=== PATIENT | female | born 1995 | race Caucasian/White ===

== ENCOUNTER 2024-02-15 14:17 | Inpatient (IN) | payer MEDICAID ==
[~2024-02-15] VITALS: Ht 165.1 cm; Wt 123.6 kg
[2024-02-15 15:05] LABS: BASO # 0.03 K/mm3 (0.02-0.10); EOS # 0.08 K/mm3 (0.04-0.40); EOS % 0.5 % (1.0-5.0); HEMATOCRIT 32.3 % (37.0-47.0); HEMOGLOBIN 10.3 g/dL (12.5-16.0); LYMPH# 0.86 K/mm3 (1.50-4.00); MEAN CELL VOLUME 77 fl (78-100); MEAN CORPUSCULAR HEMOGLOBIN 25 pg (27-31); MEAN CORPUSCULAR HGB CONC 32 g/dL (33-37); MEAN PLATELET VOLUME 9.7 fl (7.4-10.4); MONO # 0.89 K/mm3 (0.20-0.80); NEU # 14.83 K/mm3 (1.40-6.50); PLATELET COUNT 164 K/mm3 (130-400); RED BLOOD COUNT 4.18 M/mm3 (4.10-5.30); RED CELL DISTRIBUTION WIDTH 14.4 % (11.5-14.5); WHITE BLOOD COUNT 16.7 K/mm3 (4.8-10.8)
[2024-02-15 15:12] LABS: ALBUMIN 3.6 g/dL (3.5-5.0)
[2024-02-15 15:15] LABS: TOTAL PROTEIN 7.5 g/dL (6.4-8.3)
[2024-02-15] MEDS ORDERED: NS 1,000 ML IV SCH (15:15)
[2024-02-15 15:17] LABS: TOTAL BILIRUBIN 0.8 mg/dL (0.2-1.2)
[2024-02-15] MEDS ORDERED: cefTRIAXone 1 G in Water For Injection,Sterile 10 ML IV ONE (16:15)
[2024-02-15] MEDS ORDERED: Vancomycin 2 G in NS 500 ML IV ONE (16:30)
[2024-02-15] MEDS ORDERED: DAPAGLIFLOZIN10 MG PO (16:36)
[2024-02-15] MEDS ORDERED: ALDACTONE 25MG25 MG PO (16:36)
[2024-02-15] MEDS ORDERED: LYMEPAK100 MG PO (16:37)
[2024-02-15] MEDS ORDERED: METOPROLOL SUC100 M1 PO (16:38)
[2024-02-15] MEDS ORDERED: ZOFRAN ODT4 MG PO (16:38)
[2024-02-15] MEDS ORDERED: ENTRESTO 49 MG1 EACH PO (16:38)
[2024-02-15] MEDS ORDERED: Iohexol 300 - 100 ML VIAL IV ONE (18:02)
[2024-02-15 20:15] VITALS: BP 117/62
[2024-02-15] MEDS ORDERED: Acetaminophen 325 MG TAB PO PRN (20:15)
[2024-02-15] MEDS ORDERED: Ibuprofen 200 MG TAB PO PRN (20:15)
[2024-02-15] MEDS ORDERED: Ondansetron 4 MG/2 ML VIAL IV PRN (20:15)
[2024-02-15] MEDS ORDERED: Vancomycin 2 G in NS 500 ML IV STA (20:20)
[2024-02-15] MEDS ORDERED: Spironolactone 25 MG TAB PO SCH (21:00)
[2024-02-15 22:01] VITALS: BP 111/69
[2024-02-16 02:00] VITALS: BP 107/71
[2024-02-16 05:59] VITALS: BP 98/67
[2024-02-16] MEDS ORDERED: Vancomycin 1 G in NS 250 ML IV SCH (07:00)
--- NOTE | 2024-02-16 08:00 | NUR ---
PT RESTING IN BED. 20GA IV IN R HAND, NO SIGNS OF COMPLICATIONS. MEDICATION TAKEN PO. ASSESMENT COMPLETE. CELLULITIS ON L UPPER THIGH, GROWTH FROM PREVIOUS REHAN AROUND THE BORDER WAS 1CM. PT STATED THAT HER PAIN WAS A LOT BETTER TODAY. NO OTHER WANTS/NEEDS AT THIS TIME. CALL LIGHT WITHIN REACH.
[2024-02-16 08:19] LABS: BASO # 0.01 K/mm3 (0.02-0.10); EOS # 0.22 K/mm3 (0.04-0.40); EOS % 1.9 % (1.0-5.0); HEMATOCRIT 32.5 % (37.0-47.0); HEMOGLOBIN 10.4 g/dL (12.5-16.0); LYMPH# 0.81 K/mm3 (1.50-4.00); MEAN CELL VOLUME 79 fl (78-100); MEAN CORPUSCULAR HEMOGLOBIN 25 pg (27-31); MEAN CORPUSCULAR HGB CONC 32 g/dL (33-37); MONO # 0.63 K/mm3 (0.20-0.80); NEU # 9.79 K/mm3 (1.40-6.50); PLATELET COUNT 136 K/mm3 (130-400); RED BLOOD COUNT 4.11 M/mm3 (4.10-5.30); RED CELL DISTRIBUTION WIDTH 14.5 % (11.5-14.5); WHITE BLOOD COUNT 11.5 K/mm3 (4.8-10.8)
[2024-02-16 08:28] LABS: ALBUMIN 3.3 g/dL (3.5-5.0)
[2024-02-16 08:29] LABS: CALCIUM 8.7 mg/dL (8.3-10.5)
[2024-02-16 08:30] LABS: TOTAL PROTEIN 7.3 g/dL (6.4-8.3)
[2024-02-16 08:32] LABS: TOTAL BILIRUBIN 0.4 mg/dL (0.2-1.2)
[2024-02-16] MEDS ORDERED: Empagliflozin 10 MG TAB PO SCH (09:00)
[2024-02-16 10:32] VITALS: BP 114/73
[2024-02-16] MEDS ORDERED: cefTRIAXone 2 G in Water For Injection,Sterile 20 ML IV SCH (12:00)
[2024-02-16 14:50] VITALS: BP 108/63
--- NOTE | 2024-02-16 16:02 | NUR ---
Submitted insurance auth.
[2024-02-16] MEDS ORDERED: cefTRIAXone 1 G in Water For Injection,Sterile 10 ML IV SCH (16:30)
[2024-02-16 19:18] VITALS: BP 112/66
[2024-02-16] MEDS ORDERED: ALPRAZolam 0.5 MG TAB PO ONE (21:00)
[2024-02-16 22:20] VITALS: BP 107/68
[2024-02-17 01:53] VITALS: BP 95/61
[2024-02-17 05:52] VITALS: BP 103/64
[2024-02-17 06:58] LABS: BASO # 0.03 K/mm3 (0.02-0.10); EOS # 0.25 K/mm3 (0.04-0.40); EOS % 3.1 % (1.0-5.0); HEMATOCRIT 30.5 % (37.0-47.0); HEMOGLOBIN 9.7 g/dL (12.5-16.0); MEAN CELL VOLUME 78 fl (78-100); MEAN CORPUSCULAR HEMOGLOBIN 25 pg (27-31); MEAN CORPUSCULAR HGB CONC 32 g/dL (33-37); MEAN PLATELET VOLUME 10.1 fl (7.4-10.4); MONO # 0.63 K/mm3 (0.20-0.80); NEU # 6.22 K/mm3 (1.40-6.50); PLATELET COUNT 190 K/mm3 (130-400); RED BLOOD COUNT 3.89 M/mm3 (4.10-5.30); RED CELL DISTRIBUTION WIDTH 14.4 % (11.5-14.5); WHITE BLOOD COUNT 8.1 K/mm3 (4.8-10.8)
[2024-02-17 07:06] LABS: CALCIUM 8.6 mg/dL (8.3-10.5)
--- NOTE | 2024-02-17 08:55 | NUR ---
PT RESTING IN BED. RATED PAIN 2/10. STATED THAT SHE WAS IN A BETTER MOOD TODAY BECUASE HER IS ABLE TO WATCH HER DAUGHTER TODAY. CELLULITIS ON L UPPER THIGH 4CM OUTSIDE OF ORIGNAL REHAN. MEDICATION TAKE PO. ASSESMENT COMPLETE. CALL LIGHT WITHIN REACH.
[2024-02-17 10:23] VITALS: BP 95/61
--- NOTE | 2024-02-17 11:36 | NUR ---
Attempted to speak with Crys. She was sleeping soundly. Will try to speak with her later on in the day
[2024-02-17 13:35] VITALS: BP 122/90
--- NOTE | 2024-02-17 14:49 | NUR ---
[facility] She will need to bring with her [place] Identification card, social security card for everyone who lives in the home, signedlease agreement/contract, pay stlia. [phone] Ask for Cuca Moseley. Crys and I called her land lord I spoke with her louiseifly. She will call Crys back this evening. Placed my name and contact information on the white board incase her land lord would like to call to verify the information.
[2024-02-17 18:49] VITALS: BP 126/84
[2024-02-17 22:13] VITALS: BP 114/68
[2024-02-18 02:23] VITALS: BP 105/68
[2024-02-18 05:39] VITALS: BP 112/73
--- NOTE | 2024-02-18 08:35 | NUR ---
PT SLEEPING IN BED. MEDICATION TAKEN PO. DISCUSSED WITH PT THAT WE WILL TRANSITION HER TO PO ANTIBIOTICS INSTEAD OF IV. IV REMOVED, 2X2 GAUZE AND COBAND APPLIED. PT STATED SHE WAS HAPPY ABOUT THAT AND WAS READY TO GET OUT OF HERE. NO PAIN. NO OTHER NEEDS OR WANTS. CALL LIGHT WITHIN REACH.
[2024-02-18 09:04] LABS: BASO # 0.02 K/mm3 (0.02-0.10); EOS # 0.18 K/mm3 (0.04-0.40); EOS % 3.5 % (1.0-5.0); HEMATOCRIT 34.2 % (37.0-47.0); HEMOGLOBIN 10.9 g/dL (12.5-16.0); LYMPH# 0.61 K/mm3 (1.50-4.00); MEAN CELL VOLUME 77 fl (78-100); MEAN CORPUSCULAR HEMOGLOBIN 25 pg (27-31); MEAN CORPUSCULAR HGB CONC 32 g/dL (33-37); MEAN PLATELET VOLUME 9.9 fl (7.4-10.4); NEU # 4.01 K/mm3 (1.40-6.50); PLATELET COUNT 227 K/mm3 (130-400); RED BLOOD COUNT 4.44 M/mm3 (4.10-5.30); RED CELL DISTRIBUTION WIDTH 13.9 % (11.5-14.5); WHITE BLOOD COUNT 5.2 K/mm3 (4.8-10.8)
[2024-02-18] MEDS ORDERED: Sulfamethoxazole/Trimethoprim 800-160 MG TAB PO SCH (09:54)
[2024-02-18 10:53] VITALS: BP 107/75
[2024-02-18 13:50] VITALS: BP 110/73
[2024-02-18 17:20] VITALS: BP 113/78
--- NOTE | 2024-02-18 19:00 | NUR ---
received report from Arie carpio
[2024-02-18 22:00] VITALS: BP 111/58
--- NOTE | 2024-02-18 22:32 | NUR ---
pt alert and oriented x4, pt still under contact precautions. pt states no pain at this time and she is excited for discharge tomorrow. Assessment performed and medications deliverd without complications, left inner thigh symptoms possibly indicating spider bite per KARINE Smith. Pt denies any furhter needs at this time, pt has room privlidges.
[2024-02-19 01:58] VITALS: BP 118/71
--- NOTE | 2024-02-19 05:24 | NUR ---
PT TELEMETRY DC'D PER PROVIDER MILNERS ORDER
[2024-02-19 05:53] VITALS: BP 95/62
--- NOTE | 2024-02-19 06:56 | NUR ---
REPORT GIVEN TO QIANA CLAIRE
[2024-02-19 07:16] LABS: BASO # 0.03 K/mm3 (0.02-0.10); EOS # 0.15 K/mm3 (0.04-0.40); EOS % 2.9 % (1.0-5.0); HEMOGLOBIN 10.8 g/dL (12.5-16.0); MEAN CELL VOLUME 76 fl (78-100); MEAN CORPUSCULAR HEMOGLOBIN 25 pg (27-31); MEAN CORPUSCULAR HGB CONC 33 g/dL (33-37); MEAN PLATELET VOLUME 9.8 fl (7.4-10.4); NEU # 3.78 K/mm3 (1.40-6.50); PLATELET COUNT 220 K/mm3 (130-400); RED BLOOD COUNT 4.33 M/mm3 (4.10-5.30); RED CELL DISTRIBUTION WIDTH 13.7 % (11.5-14.5); WHITE BLOOD COUNT 5.3 K/mm3 (4.8-10.8)
[2024-02-19 07:21] LABS: ALBUMIN 3.5 g/dL (3.5-5.0)
[2024-02-19 07:22] LABS: CALCIUM 9.2 mg/dL (8.3-10.5)
[2024-02-19 07:24] LABS: TOTAL PROTEIN 7.4 g/dL (6.4-8.3)
[2024-02-19 07:25] LABS: TOTAL BILIRUBIN 0.2 mg/dL (0.2-1.2)
[2024-02-19] MEDS ORDERED: Sulfamethoxazole/Trimethoprim 800-160 MG TAB PO SCH (09:00)
[2024-02-19] MEDS ORDERED: Ferrous Sulfate 325 MG TAB PO SCH (09:00)
--- NOTE | 2024-02-19 09:00 | NUR ---
Pt alert and oriented times 4. She is requesting to be discharged. She ambulates in room without assistance. She does not have IV. She is here for cellulits of left upper leg. There is a black area in the center. She has good appetite. All neuros intact. She can move all extremities . EOM within normal . Wound as per documentation in wound section.
[2024-02-19 10:13] VITALS: BP 111/77
--- NOTE | 2024-02-19 11:00 | NUR ---
PT walking to set out at out on bench as she is waiting to be discharged. She denies pain.
[2024-02-19] MEDS ORDERED: MORGIDOX 1X100100 MG PO (11:36)
--- NOTE | 2024-02-19 12:30 | NUR ---
Pt ambulated to private vehicle for discharge. All belongings with pt. Pt left without incident.
== END 2024-02-19 14:01 | disposition home or self-care (01) | DRG 603 ==
LOC: ED 14:17 → MED/SURG 19:25
PROVIDERS: Family Medicine; ADMIT Physician Assistant
DX: L03.90 Cellulitis, unspecified (principal); E87.6 Hypokalemia
CPT/HCPCS: A9270; J0696; J1650; J3370; J7030; J7040; J7050; Q9967